=== PATIENT | male | born 1965 | race Caucasian/White ===

== ENCOUNTER 2022-08-08 16:57 | Outpatient (RCR) | payer OTHER | END 2022-08-09 | LOC: PT 16:57 | PROVIDERS: ATTEND Specialist | DX: M16.12 Unilateral primary osteoarthritis, left hip (principal); M54.50 Low back pain, unspecified; M62.81 Muscle weakness (generalized) ==

== ENCOUNTER 2022-09-01 10:40 | Outpatient (RCR) | payer OTHER | END 2022-09-06 | LOC: PT 10:40 | PROVIDERS: ATTEND Specialist | DX: M16.12 Unilateral primary osteoarthritis, left hip (principal) ==

== ENCOUNTER 2022-09-07 09:43 | Outpatient (RCR) | payer OTHER | END 2022-10-07 | LOC: PT 09:43 | PROVIDERS: ATTEND Specialist | DX: M16.12 Unilateral primary osteoarthritis, left hip (principal) ==